=== PATIENT | female | born 1945 | race Caucasian/White ===

== ENCOUNTER 2019-08-31 09:36 | Outpatient (CLI) | payer MEDICARE, OTHER, SELFPAY ==
--- NOTE | 2019-08-31 | XR_ITS ---
WS: [id number] LEFT HIP HISTORY: HIP PAIN COMPARISON: 02/06/2019 LEFT hip: No acute fracture or dislocation. Severe degenerative changes at the LEFT hip joint. There is near complete loss of the joint space with subchondral cystic changes, sclerosis and lytic changes . Mild narrowing of the LEFT SI joint. Asymmetric disc space narrowing the lower lumbar spine. Enthesop athy from the LEFT iliac crest. XR/XR hip LT 2-3V wo/w pel* [id number] IMPRESSION: 1. Severe LEFT hip degenerative joint arthritis. Similar to 02/06/2019. 2. No fracture.
== END 2019-08-31 09:37 | disposition home or self-care (01) ==
LOC: RADWPI 09:45
PROVIDERS: Family Provider Family Medicine; PCP Family Medicine; Visit Provider Family Medicine
DX: M16.12 Unilateral primary osteoarthritis, left hip (principal)
CPT/HCPCS: 73502

== ENCOUNTER 2020-05-13 14:57 | Outpatient (CLI) | payer MEDICARE, OTHER, SELFPAY ==
--- NOTE | 2020-05-13 15:02 | MM_ITS ---
WS: [id number] BILATERAL DIGITAL SCREENING MAMMOGRAPHY WITH CAD CLINICAL INFORMATION: SCREENING HISTORY: Screening mammogram. No current complaints. COMPARISON: TECHNIQUE: Bilateral CC and MLO views. FINDINGS: Scattered fibroglandular densities bilaterally. Vascular calcification. Lucent centered calcification s. Stable left mid breast ovoid nodule measuring 1.4 cm is unchanged. Additional smaller right subare olar nodules are similar in appearance. Punctate clustered calcifications outer left breast posterior depth. Recommend spot magnification vie ws for further evaluation. MM/[place] [id number] IMPRESSION: BI-RADS: 0-Incomplete: Need additional imaging evaluation FOLLOW UP: Need Additional Imaging Recommend spot magnification views left breast for evaluation of the above-desc ribed calcifications
== END 2020-05-13 14:58 | disposition home or self-care (01) ==
LOC: RADSHAW 15:00
PROVIDERS: Family Provider Family Medicine; PCP Family Medicine; Visit Provider Family Medicine
DX: Z12.31 Encounter for screening mammogram for malignant neoplasm of breast (principal); R92.1 Mammographic calcification found on diagnostic imaging of breast
CPT/HCPCS: 77067

== ENCOUNTER 2020-05-26 10:28 | Outpatient (CLI) | payer MEDICARE, OTHER, SELFPAY ==
--- NOTE | 2020-05-26 10:31 | MM_ITS ---
WS: [id number] LEFT DIGITAL MAMMOGRAPHY WITH CAD CLINICAL INFORMATION: ABNORMAL MAMMOGRAM COMPARISON: May 13, 2020 and multiple prior examinations dating back to 2015. TECHNIQUE: 5 views of the left breast were obtained. FINDINGS: Scattered fibroglandular densities of the left breast. Punctate clustered calcifications outer left b reast posterior depth again seen. Spinal canal magnification views demonstrate heterogeneous punctate clustered calcifications. These are indeterminate and recommend further evaluation with stereotactic guided biopsy. Calcifications appear increased from 2019. MM/[place] [id number] IMPRESSION: BI-RADS: 4-Suspicious Finding-Biopsy Should Be Considered FOLLOW UP: Stereotactic Biopsy Recommended
--- NOTE | 2020-06-23 08:17 | PC.NURSE ---
Called patient to schedule Stereotactic biopsy on 05/30 to schedule for 06/07. Pt stated she could not make it that day due to other stress test appts, and would call back when she was ready. Pt wanted to get stress test finished before biopsy. Called patient 06/06 to follow up, with no answer. I told pt to call back when ready to schedule in voicemail. Pt later called 06/10/20 stating she wanted to schedule the biopsy, but wanted me to talk with her doctor in [facility], Dr. Meredith. I spoke with his office to get an order to proceed with the biopsy and get clearance from him. I received the order 06/15 and called patient to schedule. This nurse could not get ahold of the pt. Pt called back when i was not at my desk on 06/16 stating she would be in and out due to a volleyball game. I called pt back 06/17,06/20,06/21, and 06/23 leaving voicemails each time saying to call mammo back regarding biopsy. pt still has not returned my calls to schedule. Tiffany DODD
== END 2020-05-26 10:29 | disposition home or self-care (01) ==
LOC: RADSHAW 10:30
PROVIDERS: Family Provider Family Medicine; PCP Family Medicine; Visit Provider Family Medicine
DX: R92.8 Other abnormal and inconclusive findings on diagnostic imaging of breast (principal); R92.1 Mammographic calcification found on diagnostic imaging of breast
CPT/HCPCS: 77065

== ENCOUNTER 2020-05-30 09:19 | Outpatient (CLI) | payer MEDICARE, OTHER, SELFPAY ==
[2020-05-30 09:47] LABS: Basophils # 0.1 10^3/uL (0.0-0.1); Basophils % 0.8 %; Eosinophils # 0.2 10^3/uL (0.0-0.8); Eosinophils % 2.9 %; Hematocrit 42.9 % (37.0-47.0); Hemoglobin 14.4 g/dL (11.5-15.3); Lymphocytes # 2.5 10^3/uL (0.8-4.8); Lymphocytes % 31.8 %; Mean Corpuscular HGB Conc 33.6 g/dL (30.0-36.0); Mean Corpuscular Hemoglobin 31.8 pg (28.0-34.0); Mean Corpuscular Volume 94.7 fL (81-99); Mean Platelet Volume 10.3 fL (7.4-10.4); Monocytes # 0.7 10^3/uL (0.2-0.9); Monocytes % 8.4 %; Neutrophils # 4.38 10^3/uL (1.8-7.7); Neutrophils % 55.8 %; Nucleated Red Blood Cells % 0 %; Platelet Count 211 10^3/cmm (130-400); Red Blood Count 4.53 10^6/uL (4.1-5.3); Red Cell Distribution Width 12.1 % (12.1-15.1); White Blood Count 7.9 10^3/uL (4.0-10.0)
[2020-06-01 14:43] LABS: Immunoglobulin E <2 kU/L (<OR=114)
[2020-06-01 15:48] LABS: Alternaria Alternata (M6) Ige <0.10 kU/L; Alternaria Class 0; Bermuda Class 0; Bermuda Grass (G2) Ige <0.10 kU/L; Cat Dander (E1) Ige <0.10 kU/L; Cat Dander Class 0; Common Ragweed (Short) (W1) Ig <0.10 kU/L; D. Farinae Class 0; Dermatophagoides Class 0; Dermatophagoides Farinae (D2) <0.10 kU/L; Dermatophagoides Pteronyssinus <0.10 kU/L; Dog Dander (E5) Ige <0.10 kU/L; Dog Dander Class 0; Elm (T8) Ige <0.10 kU/L; Elm Class 0; English Plantain (W9) Ige <0.10 kU/L; English Plantain Class 0; House Dust (Greer) (H1) Ige <0.10 kU/L; House Dust (Hollister- Stier) <0.10 kU/L; House Dust Class 0; Immunoglobulin E <2 kU/L (<OR=114); Johnson Grass (G10) Ige <0.10 kU/L; Johnson Grass Cl 0; June Grass Class 0; June Grass(Kentucky Blue) (G8) <0.10 kU/L; Lamb'S Quarters (Goose Foot) <0.10 kU/L; Lamb'S Quarters Class 0; Maple (Box Elder) (T1) Ige <0.10 kU/L; Maple Class 0; Meadow Fescue (G4) Ige <0.10 kU/L; Meadow Fescue Class 0; Mucor Racemosus Class 0; Oak (T7) Ige <0.10 kU/L; Oak Class 0; Orchard Grass (Cocksfoot) (G3) <0.10 kU/L; Penicillium Class 0; Penicillium Notatum (M1) Ige <0.10 kU/L; Perennial Rye Grass (G5) Ige <0.10 kU/L; Perennial Rye Grass Class 0; Ragweeed Class 0; Rough Marsh Elder (W16) Ige <0.10 kU/L; Rough Marsh Elder Class 0; Sweet Vernal Class 0; Sweet Vernal Grass (G1) Ige <0.10 kU/L; Timothy Grass (G6) Ige <0.10 kU/L; Timothy Grass Class 0
[2020-06-01 22:32] LABS: Aspergillus Fumigatus, Igg Ab, 40.6 mg/L (<=102)
== END 2020-05-30 09:20 | disposition home or self-care (01) ==
LOC: LAB 09:23
PROVIDERS: PCP Family Medicine; Visit Provider Internal Medicine Critical Care Medicine
DX: R06.02 Shortness of breath (principal); J45.909 Unspecified asthma, uncomplicated
CPT/HCPCS: 36415; 82785; 85025; 86003

== ENCOUNTER 2020-07-05 11:57 | Outpatient (CLI) | payer MEDICARE, OTHER, SELFPAY ==
--- NOTE | 2020-07-05 12:03 | MM_ITS ---
WS: [id number] STEREOTACTIC LEFT BREAST BIOPSY WITH VACUUM ASSISTANCE. History: Heterogeneous left breast calcifications. Biopsy recommended for suspicious calcifications. Procedure, risks, and complications were discussed with the patient who agreed to proceed. Prior imag ing was reviewed. Cluster of calcifications within the left breast are localized. Stereotactic imaging was performed. P atient was prepped and draped in usual sterile fashion. After 1% lidocaine, calcifications were targe nieves stereotactically in the left breast. Small incision was made. Needle advanced into the cluster of calcifications left breast with imaging demonstrating appropriate position relative to the calcifica tions. Multiple vacuum-assisted core biopsies were obtained. Postprocedure imaging demonstrates calci fications within the biopsy specimen. The biopsy cavity was lavaged. Titanium clip was placed at the biopsy site. Postprocedure imaging dem onstrates clip in good position. No immediate complications. MM/[place] [id number] Pathology: Left breast with calcifications, needle core biopsies: Ductal carcinoma in situ, solid pattern with central comedo necrosis and calcif ications High nuclear grade No invasive malignancy identified Surrounding breast tissue with fibrocystic changes Focus of DCIS is 2 mm in greatest dimension IMPRESSION: 1. Uncomplicated vacuum-assisted stereotactic biopsy of calcifications in the left breast. 2. Pathology demonstrates DCIS solid pattern with central comedo necrosis and calcifications. High nuclear grade. No invasive malignancy. 3. Breast prognostic profile is pending. RECOMMEND BREAST SURGERY CONSULTATION FOR FURTHER EVALUATION.
--- NOTE | 2020-07-05 12:03 | MM_ITS ---
WS: [id number] STEREOTACTIC LEFT BREAST BIOPSY WITH VACUUM ASSISTANCE. History: Heterogeneous left breast calcifications. Biopsy recommended for suspicious calcifications. Procedure, risks, and complications were discussed with the patient who agreed to proceed. Prior imag ing was reviewed. Cluster of calcifications within the left breast are localized. Stereotactic imaging was performed. P atient was prepped and draped in usual sterile fashion. After 1% lidocaine, calcifications were targe nieves stereotactically in the left breast. Small incision was made. Needle advanced into the cluster of calcifications left breast with imaging demonstrating appropriate position relative to the calcifica tions. Multiple vacuum-assisted core biopsies were obtained. Postprocedure imaging demonstrates calci fications within the biopsy specimen. The biopsy cavity was lavaged. Titanium clip was placed at the biopsy site. Postprocedure imaging dem onstrates clip in good position. No immediate complications. MM/MM surgical specimen LT Pathology: Left breast with calcifications, needle core biopsies: Ductal carcinoma in situ, solid pattern with central comedo necrosis and calcif ications High nuclear grade No invasive malignancy identified Surrounding breast tissue with fibrocystic changes Focus of DCIS is 2 mm in greatest dimension IMPRESSION: 1. Uncomplicated vacuum-assisted stereotactic biopsy of calcifications in the left breast. 2. Pathology demonstrates DCIS solid pattern with central comedo necrosis and calcifications. High nuclear grade. No invasive malignancy. 3. Breast prognostic profile is pending. RECOMMEND BREAST SURGERY CONSULTATION FOR FURTHER EVALUATION.
--- NOTE | 2020-07-05 12:03 | MM_ITS ---
WS: [id number] STEREOTACTIC LEFT BREAST BIOPSY WITH VACUUM ASSISTANCE. History: Heterogeneous left breast calcifications. Biopsy recommended for suspicious calcifications. Procedure, risks, and complications were discussed with the patient who agreed to proceed. Prior imag ing was reviewed. Cluster of calcifications within the left breast are localized. Stereotactic imaging was performed. P atient was prepped and draped in usual sterile fashion. After 1% lidocaine, calcifications were targe nieves stereotactically in the left breast. Small incision was made. Needle advanced into the cluster of calcifications left breast with imaging demonstrating appropriate position relative to the calcifica tions. Multiple vacuum-assisted core biopsies were obtained. Postprocedure imaging demonstrates calci fications within the biopsy specimen. The biopsy cavity was lavaged. Titanium clip was placed at the biopsy site. Postprocedure imaging dem onstrates clip in good position. No immediate complications. MM/MM biopsy LT vac assist [id number] Pathology: Left breast with calcifications, needle core biopsies: Ductal carcinoma in situ, solid pattern with central comedo necrosis and calcif ications High nuclear grade No invasive malignancy identified Surrounding breast tissue with fibrocystic changes Focus of DCIS is 2 mm in greatest dimension IMPRESSION: 1. Uncomplicated vacuum-assisted stereotactic biopsy of calcifications in the left breast. 2. Pathology demonstrates DCIS solid pattern with central comedo necrosis and calcifications. High nuclear grade. No invasive malignancy. 3. Breast prognostic profile is pending. RECOMMEND BREAST SURGERY CONSULTATION FOR FURTHER EVALUATION.
[2020-07-05 13:20] LABS: INR 0.99 (0.8-1.2)
[2020-07-11 10:41] LABS: Miscellaneous Test See Scanned Lab Rpt
== END 2020-07-05 11:58 | disposition home or self-care (01) ==
LOC: RADSHAW 12:02
PROVIDERS: Internal Medicine; PCP Family Medicine; Visit Provider Family Medicine
DX: R92.8 Other abnormal and inconclusive findings on diagnostic imaging of breast (principal); R92.1 Mammographic calcification found on diagnostic imaging of breast; D05.12 Intraductal carcinoma in situ of left breast; Z01.812 Encounter for preprocedural laboratory examination
CPT/HCPCS: 19081; 77065; 85610; 88305; 88361; 88374; J7050

== ENCOUNTER 2020-07-15 08:49 | Outpatient (CLI) | payer MEDICARE, OTHER, SELFPAY ==
--- NOTE | 2020-07-17 12:25 | ONC CON_ITS ---
Dr. Alba New Patient Note Patient: Gabi Moss Unit #: [id number]: [id number] Dicatated By: Sandeep Alba M.D.Date of Visit: July 15, 2020 Onc MED New Patient/Consult Referring Physician: Dr. Chilo hZu M.D. Chief Complaint: Breast cancer. History of Present Illness: This is a 74-year-old woman with newly diagnosed ductal carcinoma in situ of the left breast. Her screening mammogram on 05/13/2020 was BI-RADS 0 with evidence of punctate clustered calcifications in the outer left breast posterior depth. A left mid breast ovoid nodule measuring 1.4 cm appeared unchanged. Additional smaller right subareolar nodules also were similar in appearance. Her additional mammographic views on 05/26/2020 were BI-RADS 4, suspicious. Again noted were heterogeneous punctate clustered calcifications in the outer left breast posterior depth. They appeared increased from a previous study in 2019, and biopsy was recommended. She then underwent stereotactic left breast biopsy with vacuum assistance on 07/05/2020. Pathology showed a focus ductal carcinoma in situ, solid pattern with central comedonecrosis and calcifications, high nuclear grade. It measured only 2 mm. Fibrocystic changes were noted in the surrounding breast tissue. There was no invasive malignancy identified. The breast prognostic profile showed ER positive at 99% and ND positive at 85%. HER-2/daniela was 2+ by IHC but negative by FISH with amplification ratio of 1.3 with 2.6 HER-2 copies/cell. Ki-67 was low at 5%. She is seen now for further management of the breast cancer. She has been feeling good generally. She has good energy and activity tolerance. ECOG score is 0. Her appetite is good. She has no fever, night sweats, or hot flashes. She underwent natural menopause at age 48. She received no hormone replacement therapy. She does have some cough and shortness of breath, attributable to asthma. She has obstructive sleep apnea, for which she has been on CPAP for about 5 years. She does not complain of chest pain. She has some mild chronic constipation. She has no other GI or complaints. She has degenerative arthritis and she has had prior total knee replacement bilaterally and a right total hip arthroplasty. She has been having significant pain in her lower back and left hip, and she is scheduled to undergo left total hip arthroplasty next week. She does not complain of headache or dizziness. She has occasional tingling in her fingers. She has no other focal neurologic symptoms. Past Medical History: Her medical history includes asthma, degenerative arthritis, hyperlipidemia, hypertension, and obstructive sleep apnea. Past Surgical History: She underwent stereotactic left breast biopsy with vacuum assistance on 07/05/2020. Her other surgical/procedural history includes right total hip arthroplasty and total knee arthroplasty bilaterally. Medications: Aspirin 81 1 (81 mg) Tablet, chewable Oral daily, Cetirizine HCl 1 (10 mg) Tablet Oral daily, Cholecalciferol 1 (125 mcg ) Capsule Oral daily, hydroCHLOROthiazide 1 (25 mg) Tablet Oral daily, Lisinopril 1 (40 mg) Tablet Oral daily, Methotrexate Sodium 1 (2.5 mg) Tablet Oral q 7 days, Multi Vitamin 1 Tablet Oral daily, Naprosyn 1 (500 mg) Tablet Oral b.i.d., Rosuvastatin Calcium (10 mg) Tablet Oral Take as Directed, Vitamin C 1 (500 mg) Capsule Oral daily Allergies: No Known Allergies. Social History: Ms. Moss is . She is a non-smoker. She did have significant secondhand smoke exposure while growing up. She has just occasional alcohol use. Family History: Father with an aneurysm at age 90. Mother with pneumonia at age 89. Review Of Symptoms: Constitutional - She generally feels good. She has good energy. She continues to work full-time and has normal activity without restrictions. Her a appetite is good and her weight is stable. No fever, night sweats, or hot flashes. ECOG score is 0, Eyes - No change in vision, ENMT - No hearing loss or tinnitus. No sinus congestion/drainage. No mouth sores. No sore throat or difficulty swallowing, Hematologic/Lymphatic - No abnormal bruising or bleeding, Respiratory - She gets short of breath with exertion, believed to be associated with asthma. She has a slight cough. No pleuritic pain or hemoptysis, Cardiovascular - No angina pain. No palpitations, Gastrointestinal - No nausea or vomiting. No heartburn or acid reflux. No diarrhea. She a mild occasional constipation. No blood in the stool or black stools, Genitourinary (F) - No dysuria or hematuria. No urinary frequency. No urgency or incontinence, Musculoskeletal - She has persistent pain in her left hip that radiates into her lower back. She is scheduled for hip replacement next week. No other reports of pain, Integumentary - No skin eruption, Neurologic - No headache or dizziness. She has occasional tingling in her fingertips. No other focal neurologic symptoms, Psychiatric - She has some acute mild anxiety related to diagnosis. No depression. She does not sleep well. Vital Signs: Performed on July 15, 2020 09:12: 7, 38.96 (HIGH), 2.17 sq.m, 66 in, 99 %, 96 /min, 18 /min, 123/79 mm(hg), 98.3 F (LOW), and 241.4 lbs (HIGH). Physical Examination: Constitutional - She appears to be in good general health, Eyes - Sclerae nonicteric. Conjunctivae clear, ENMT - No lesions noted in the oral cavity, Neck - No mass or thyromegaly, Hematologic/Lymphatic - No cervical or clavicular adenopathy, Respiratory - Lungs show slightly coarse breath sounds bilaterally, Cardiovascular - Heart rhythm is regular. There is no murmur, gallop, or rub noted, Breasts - There are no breast masses noted. There is no axillary adenopathy, Abdomen - Soft. Liver and spleen are not enlarged. There is no abdominal mass or ascites noted and there is no inguinal adenopathy, Back/Spine - No spine or CVA tenderness noted, Extremities - No edema. Dorsalis pedis pulses are palpable bilaterally, Integumentary - No rashes. No suspicious skin lesions noted, Neurologic - No focal neurologic deficits noted. Problem List: 1. Ductal carcinoma in situ of the left breast, diagnosed by stereotactic biopsy on 07/05/2020. There was no invasive malignancy identified. 2. Degenerative arthritis with planned left total hip arthroplasty on 07/20/2020. 3. Hypertension. 4. Hyperlipidemia. 5. Mild asthma. 6. Obstructive sleep apnea. Problems Addressed with this Encounter and Plan: Patient with recently diagnosed ductal carcinoma in situ of the left breast, high nuclear grade. She had presented with abnormal screening mammogram which demonstrated punctate calcifications in the outer left breast which had increased compared to her 2019 study. The focus of DCIS measured only 2 mm, and it was ER/ND postitive. There was no evidence of invasive cancer in the biopsy. The pathology results were reviewed with the patient and we discussed the clinical implications. She had a focus of DCIS identified within the biopsy. We discussed the fact that as this is not invasive cancer, it does not have the potential to spread, but that it does require treatment. Given the very small size of the tumor, I think the next step is to proceed with a lumpectomy procedure. We can then consider further evaluation and treatment depending on the extent of remaining tumor in the specimen. We may want to consider getting a Decision Rx study to help determine the need for radiation, and we may also want to consider adjuvant endocrine therapy. In any case, in the setting of a very small focus of DCIS, there is certainly no urgency to getting the lumpectomy, and I see no reason to delay her total hip arthroplasty. She is being scheduled to see Dr. Pozo for the lumpectomy, but in my opinion that can safely be deferred for at least 3 to 4 weeks. I will plan to see her again when the lumpectomy results are available. Signed By: Sandeep Alba M.D. <<Signature on File>>
== END 2020-07-15 08:50 | disposition home or self-care (01) ==
LOC: ONCMED 08:53
PROVIDERS: PCP Family Medicine; Visit Provider Internal Medicine Medical Oncology
DX: D05.12 Intraductal carcinoma in situ of left breast (principal); Z17.0 Estrogen receptor positive status [ER+]; M16.12 Unilateral primary osteoarthritis, left hip; I10 Essential (primary) hypertension; E78.5 Hyperlipidemia, unspecified; J45.20 Mild intermittent asthma, uncomplicated; G47.33 Obstructive sleep apnea (adult) (pediatric); Z90.12 Acquired absence of left breast and nipple; Z96.642 Presence of left artificial hip joint; Z79.899 Other long term (current) drug therapy
CPT/HCPCS: 99205

== ENCOUNTER 2020-10-18 11:22 | Outpatient (CLI) | payer MEDICARE, OTHER, SELFPAY ==
--- NOTE | 2020-10-21 07:43 | ONC FU_ITS ---
Dr. Alba Patient Follow-Up Note Patient: Gabi Moss Unit #: [id number]: [id number] Dicatated By: Sandeep Alba M.D.Date of Visit:Oct 18, 2020 Onc Med Follow-up/Prog Note Chief Complaint: Breast cancer. History of Present Illness: This is a 75 year-old woman with high nuclear grade ductal carcinoma in situ of the left breast, ER/IL positive. Her screening mammogram on 05/13/2020 was BI-RADS 0 with evidence of punctate clustered calcifications in the outer left breast posterior depth. A left mid breast ovoid nodule measuring 1.4 cm appeared unchanged. Additional smaller right subareolar nodules also were similar in appearance. Her additional mammographic views on 05/26/2020 were BI-RADS 4, suspicious. Again noted were heterogeneous punctate clustered calcifications in the outer left breast posterior depth. They appeared increased from a previous study in 2019, and biopsy was recommended. She then underwent stereotactic left breast biopsy with vacuum assistance on 07/05/2020. Pathology showed a focus ductal carcinoma in situ, solid pattern with central comedonecrosis and calcifications, high nuclear grade. It measured only 2 mm. Fibrocystic changes were noted in the surrounding breast tissue. There was no invasive malignancy identified. The breast prognostic profile showed ER positive at 99% and IL positive at 85%. HER-2/daniela was 2+ by IHC but negative by FISH with amplification ratio of 1.3 with 2.6 HER-2 copies/cell. Ki-67 was low at 5%. I had seen her initially on 07/15/2020. At that point she was recommended to proceed with left breast lumpectomy. The lumpectomy procedure was done by Dr. Pozo on 08/29/2020. The gross pathology revealed a 1.7 x 1.5 x 1.0 cm white-sarabia fibrous lesion. Additional tissue was removed at the deep margin. A small focus of cauterized atypical epithelium had features which were felt to be most consistent with atypical ductal hyperplasia. It was noted to extend within 1 mm of the deep margin. The additional deep margin tissue was uninvolved. There was no residual in situ or invasive carcinoma identified. With those findings, she was given a prescription for anastrozole 1 mg daily. She has not yet started taking it. Her other medical illnesses include hypertension, hyperlipidemia, mild asthma, and obstructive sleep apnea. She has significant degenerative arthritis. She underwent left total hip arthroplasty in July 2020. She had previous right total hip arthroplasty and bilateral total knee arthroplasty procedures. She is a non-smoker. She returns now for review of the pathology and to discuss further management of her breast cancer. Medications: Anastrozole (1 mg) Tablet Oral daily, Aspirin 81 1 (81 mg) Tablet, chewable Oral daily, Cetirizine HCl 1 (10 mg) Tablet Oral daily, Cholecalciferol 1 (125 mcg ) Capsule Oral daily, hydroCHLOROthiazide 1 (25 mg) Tablet Oral daily, Lisinopril 1 (40 mg) Tablet Oral daily, Methotrexate 5 (2.5 mg) Tablet Oral on , Methotrexate Sodium 1 (2.5 mg) Tablet Oral q 7 days, Multi Vitamin 1 Tablet Oral daily, Naprosyn 1 (500 mg) Tablet Oral b.i.d., Rosuvastatin Calcium (10 mg) Tablet Oral Take as Directed, Vitamin C 1 (500 mg) Capsule Oral daily Allergies: No Known Allergies. Vital Signs: Performed on Oct 18, 2020 11:50 Height - 66.00 in Weight - 240.8 lbs (LOW) BSA - 2.16 sq.m BMI - 38.87 (HIGH) Problem List: 1. Ductal carcinoma in situ of the left breast, diagnosed by stereotactic biopsy on 07/05/2020. There was no invasive malignancy identified. 2. Degenerative arthritis with planned left total hip arthroplasty on 07/20/2020. 3. Hypertension. 4. Hyperlipidemia. 5. Mild asthma. 6. Obstructive sleep apnea. Problems Addressed with this Encounter and Plan: Patient with high nuclear grade ductal carcinoma in situ of the left breast, ER/IL positive. She had presented with abnormal screening mammogram which demonstrated punctate calcifications in the outer left breast which had increased compared to her 2019 study. The focus of DCIS measured only 2 mm. There was no evidence of invasive cancer in the biopsy. She underwent left breast lumpectomy on 08/29/2020. Pathology on the lumpectomy specimen showed a focus of atypical ductal hyperplasia which was noted to extend within 1 mm of the deep margin. Additional deep margin tissue was removed and was uninvolved. There was no evidence for residual ductal carcinoma in situ or invasive carcinoma. With those findings she was given a prescription for anastrozole 1 mg daily, but she has not started taking it. In summary, she had a very small focus of high nuclear grade ductal carcinoma. It measured only 2 mm, and it appears to have been completely removed with the initial biopsy procedure. Under usual circumstances, it would be very reasonable to limit her further treatment to adjuvant hormonal therapy. My concern relates the fact that she has significant underlying degenerative arthritis, and she may not tolerate an aromatase inhibitor. The other option, which would be tamoxifen, would have some risk of thromboembolism and a small risk of causing endometrial carcinoma, and she indicates upfront that she would prefer not to take it. As an alternative, I would consider evaluating further with a DCISion RT study if there is sufficient tissue sample for analysis. If that were to come back high risk, we may still want to proceed with radiation to the left breast. If she has low risk disease, we can try the aromatase inhibitor, and if she doesn't tolerate it she can then just be followed expectantly. Signed By: Sandeep Alba M.D. <<Signature on File>>
== END 2020-10-18 11:23 | disposition home or self-care (01) ==
PROVIDERS: PCP Family Medicine; Visit Provider Internal Medicine Medical Oncology
DX: C50.812 Malignant neoplasm of overlapping sites of left female breast (principal); Z17.0 Estrogen receptor positive status [ER+]; Z96.642 Presence of left artificial hip joint; I10 Essential (primary) hypertension; E78.5 Hyperlipidemia, unspecified; J45.20 Mild intermittent asthma, uncomplicated; G47.33 Obstructive sleep apnea (adult) (pediatric); Z79.811 Long term (current) use of aromatase inhibitors; Z90.11 Acquired absence of right breast and nipple
CPT/HCPCS: 99214

== ENCOUNTER 2020-12-29 13:03 | Outpatient (CLI) | payer MEDICARE, OTHER, SELFPAY ==
--- NOTE | 2020-12-30 06:43 | ONC FU_ITS ---
Dr. Alba Patient Follow-Up Note Patient: Gabi Moss Unit #: [id number]: 1945 Dicatated By: Sandeep Alba M.D.Date of Visit:Dec 29, 2020 Onc Med Follow-up/Prog Note Chief Complaint: Breast cancer. 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 Her screening mammogram on 05/13/2020 was BI-RADS 0 with evidence of punctate clustered calcifications in the outer left breast posterior depth. A left mid breast ovoid nodule measuring 1.4 cm appeared unchanged. Additional smaller right subareolar nodules also were similar in appearance. Her additional mammographic views on 05/26/2020 were BI-RADS 4, suspicious. Again noted were heterogeneous punctate clustered calcifications in the outer left breast posterior depth. They appeared increased from a previous study in 2019, and biopsy was recommended. She then underwent stereotactic left breast biopsy with vacuum assistance on 07/05/2020. Pathology showed a focus ductal carcinoma in situ, solid pattern with central comedonecrosis and calcifications, high nuclear grade. It measured only 2 mm. Fibrocystic changes were noted in the surrounding breast tissue. There was no invasive malignancy identified. The breast prognostic profile showed ER positive at 99% and NM positive at 85%. HER-2/daniela was 2+ by IHC but negative by FISH with amplification ratio of 1.3 with 2.6 HER-2 copies/cell. Ki-67 was low at 5%. I had seen her initially on 07/15/2020. At that point she was recommended to proceed with left breast lumpectomy. The lumpectomy procedure was done by Dr. Pozo on 08/29/2020. The gross pathology revealed a 1.7 x 1.5 x 1.0 cm white-sarabia fibrous lesion. Additional tissue was removed at the deep margin. A small focus of cauterized atypical epithelium had features which were felt to be most consistent with atypical ductal hyperplasia. It was noted to extend within 1 mm of the deep margin. The additional deep margin tissue was uninvolved. There was no residual in situ or invasive carcinoma identified. Given the very small size of the tumor, we opted to admit radiation and limit further treatment to adjuvant hormonal therapy. She began treatment with his anastrozole 1 mg daily in November 2020. Her baseline DEXA scan showed T score -0.2 in the left distal radius. The lumbar spine T score was felt to be spuriously elevated due to degenerative disease. Her other medical illnesses include hypertension, hyperlipidemia, mild asthma, and obstructive sleep apnea. She has significant degenerative arthritis. She underwent left total hip arthroplasty in July 2020. She had previous right total hip arthroplasty and bilateral total knee arthroplasty procedures. She is a non-smoker. She is seen for a follow-up visit. She has been feeling good generally. She has not been aware of any significant change in her joint pain since starting the anastrozole. She mainly has pain in her knees, for which she is still getting some physical therapy. She has good energy and activity tolerance. ECOG score is 0. Appetite also is good. She has no fever, night sweats, or hot flashes. She has some allergy related cough. She has no shortness of breath or chest pain. She has no GI or complaints. She has headache occasionally. She does not complain of dizziness, and she has no focal neurologic symptoms. Medications: Anastrozole (1 mg) Tablet Oral daily, Aspirin 81 1 (81 mg) Tablet, chewable Oral daily, Cetirizine HCl 1 (10 mg) Tablet Oral daily, Cholecalciferol 1 (125 mcg ) Capsule Oral daily, hydroCHLOROthiazide 1 (25 mg) Tablet Oral daily, Lisinopril 1 (40 mg) Tablet Oral daily, Multi Vitamin 1 Tablet Oral daily, Naprosyn 1 (500 mg) Tablet Oral b.i.d., Rosuvastatin Calcium (10 mg) Tablet Oral Take as Directed, Vitamin C 1 (500 mg) Capsule Oral daily Allergies: No Known Allergies. Vital Signs: Performed on Dec 29, 2020 13:14 Height - 66.00 in Weight - 235.8 lbs (LOW) BSA - 2.15 sq.m BMI - 38.06 (HIGH) Temperature - 97.0 F (LOW) Pulse - 86 /min Respiration - 22 /min BP - 123/76 mm(hg) O2 Sat - 98 % Pain - 0 Fatigue - 0 Physical Examination: Constitutional - She looks good generally, Eyes - Sclerae nonicteric. Conjunctivae clear, ENMT - No lesions noted in the oral cavity, Hematologic/Lymphatic - No cervical, clavicular, or axillary adenopathy, Respiratory - Lungs sound clear, Cardiovascular - Heart rhythm is regular. There is no murmur, gallop, or rub noted, Abdomen - Soft. Liver and spleen are not enlarged. There is no abdominal mass or ascites noted and there is no inguinal adenopathy, Extremities - No edema. Pedal pulses are palpable bilaterally, Neurologic - No focal neurologic deficits noted. Problem List: 1. Ductal carcinoma in situ of the left breast, diagnosed by stereotactic biopsy on 07/05/2020. There was no invasive malignancy identified. 2. Degenerative arthritis. 3. Hypertension. 4. Hyperlipidemia. 5. Mild asthma. 6. Obstructive sleep apnea. 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 She had presented with abnormal screening mammogram which demonstrated punctate calcifications in the outer left breast which had increased compared to her 2019 study. The focus of DCIS measured only 2 mm. There was no evidence of invasive cancer in the biopsy. She underwent left breast lumpectomy on 08/29/2020. Pathology on the lumpectomy specimen showed a focus of atypical ductal hyperplasia which was noted to extend within 1 mm of the deep margin. Additional deep margin tissue was removed and was uninvolved. There was no evidence for residual ductal carcinoma in situ or invasive carcinoma. As she had only a 2 mm focus of high nuclear grade ductal carcinoma we opted to limit further treatment to adjuvant hormonal therapy. She began treatment with anastrozole 1 mg daily in November 2020. Thus far she has been tolerating it with no adverse effects. She will continue anastrozole at the same dosage. I will see her again in 6 months. Signed By: Sandeep Alba M.D. <<Signature on File>>
== END 2020-12-29 13:04 | disposition home or self-care (01) ==
LOC: ONCMED 13:05
PROVIDERS: PCP Internal Medicine; Visit Provider Internal Medicine Medical Oncology
DX: C50.812 Malignant neoplasm of overlapping sites of left female breast (principal); Z17.0 Estrogen receptor positive status [ER+]; M19.90 Unspecified osteoarthritis, unspecified site; I10 Essential (primary) hypertension; E78.5 Hyperlipidemia, unspecified; J45.20 Mild intermittent asthma, uncomplicated; G47.33 Obstructive sleep apnea (adult) (pediatric); Z79.811 Long term (current) use of aromatase inhibitors; Z90.12 Acquired absence of left breast and nipple
CPT/HCPCS: 99214

== ENCOUNTER → 2021-05-03 15:24 | Outpatient (BNVA) | payer MEDICARE, OTHER, SELFPAY | PROVIDERS: PCP Internal Medicine; Visit Provider Internal Medicine Critical Care Medicine | DX: J45.909 Unspecified asthma, uncomplicated (principal); G47.33 Obstructive sleep apnea (adult) (pediatric); I10 Essential (primary) hypertension; E78.5 Hyperlipidemia, unspecified; R09.82 Postnasal drip; M19.90 Unspecified osteoarthritis, unspecified site; Z96.642 Presence of left artificial hip joint | CPT/HCPCS: 99214 ==

== ENCOUNTER 2021-09-05 10:48 | Oncology outpatient (recurring) (ONCR) | payer MEDICARE, OTHER, SELFPAY | END 2021-09-05 23:59 | disposition home or self-care (01) | PROVIDERS: PCP Internal Medicine; Visit Provider Internal Medicine Medical Oncology | DX: D05.12 Intraductal carcinoma in situ of left breast (principal); Z17.0 Estrogen receptor positive status [ER+]; Z79.818 Long term (current) use of other agents affecting estrogen receptors and estrogen levels; M25.59 Pain in other specified joint; Z79.899 Other long term (current) drug therapy | CPT/HCPCS: 99214 ==

== ENCOUNTER 2022-03-12 14:17 | Oncology outpatient (recurring) (ONCR) | payer MEDICARE, OTHER, SELFPAY | END 2022-04-03 23:59 | disposition home or self-care (01) | PROVIDERS: PCP Internal Medicine; Visit Provider Internal Medicine Medical Oncology | DX: D05.12 Intraductal carcinoma in situ of left breast (principal); Z17.0 Estrogen receptor positive status [ER+]; M25.542 Pain in joints of left hand; M25.541 Pain in joints of right hand; Z79.818 Long term (current) use of other agents affecting estrogen receptors and estrogen levels; Z79.899 Other long term (current) drug therapy | CPT/HCPCS: 99214 ==

== ENCOUNTER 2022-10-02 13:11 | Oncology outpatient (recurring) (ONCR) | payer MEDICARE, OTHER, SELFPAY | END 2022-11-01 23:59 | disposition home or self-care (01) | PROVIDERS: PCP Internal Medicine; Visit Provider Internal Medicine Medical Oncology | DX: D05.12 Intraductal carcinoma in situ of left breast (principal); Z17.0 Estrogen receptor positive status [ER+]; Z79.818 Long term (current) use of other agents affecting estrogen receptors and estrogen levels; Z79.899 Other long term (current) drug therapy | CPT/HCPCS: 99214 ==

== ENCOUNTER → 2023-08-08 14:49 | Outpatient (BNVA) | payer MEDICARE, OTHER, SELFPAY | PROVIDERS: PCP Internal Medicine; Visit Provider Internal Medicine Pulmonary Disease | DX: J45.909 Unspecified asthma, uncomplicated (principal); R06.02 Shortness of breath; G47.33 Obstructive sleep apnea (adult) (pediatric) | CPT/HCPCS: 99214 ==